=== PATIENT | female | born 1970 | race Two or more races ===

== ENCOUNTER 2018-11-30 09:27 | Outpatient (CLI) | payer OTHER ==
[~2018-11-30 09:27] MED LIST: BYDUREON P2 MG/0.65; GABAPENTIN400 MG PO; NABUMETONE500 MG PO; PERCOCET 5-3251 EACH PO; TRAMADOL HCL50 MG PO
== END 2018-11-30 09:33 | disposition home or self-care (01) ==
LOC: SONOGRAMA 09:27
DX: E03.5 Myxedema coma (principal); E21.5 Disorder of parathyroid gland, unspecified